=== PATIENT | female | born 1985 | race Caucasian/White ===

== ENCOUNTER 2016-11-04 16:19 | Emergency (ER) | payer OTHER ==
[~2016-11-04] VITALS: Ht 160 cm; Wt 86.4 kg
[~2016-11-04 16:19] MED LIST: HYDR-4003 PO; SYN75 PO; VALA100026 PO; VENL75TA3 PO
[2016-11-04 16:33] VITALS: BP 137/100; PULSE 108; RESP 20; O2SAT 99
--- NOTE | 2016-11-04 18:04 | ED.REPORT ---
HPI-Dental/Mouth Prob Date of Service November 04, 2016 ED Provider: Tonya Rogers History of Present Illness: dentist feels she has an infection. tooth removed on Monday am, returned on Monday confirmed dry socket, given vicodin saw different dentist, packed some help. but packing comes out. Started on PEN vk today. . nausea because of the pain1010 Nursing Notes Stated Complaint: DRY SOCKET Chief Complaint: Dental Allergies: Coded Allergies: No Known Allergies (Unverified , 04/21/16) Scheduled Levothyroxine (Synthroid) 75 Mcg Tablet 75 MCG PO DAILY Valacyclovir (Valacyclovir) 1,000 Mg Tablet 1,000 MG PO DAILY Venlafaxine (Venlafaxine) 75 Mg Tablet 37 MG PO BIDWM Scheduled PRN Hydrocodone-Acetaminophen 5-325 mg (Hydrocodone-Acetaminophen 5-325 mg) 1 Each Tablet 1 TABLET PO Q4H PRN PRN For Pain General Time Seen by MD: 18:03 Chief Complaint Tooth pain Hx Obtained From: Patient Onset Occurred: 6 days ago Symptom Duration: Since onset Severity: Current: Pain level 10 out of 10 Past Medical History Past Medical History Notes: PCP: Dr. Perry Past Medical History Frequent ear and sinus infections as a youth 2013 hypothyroid Reports: Thyroid disease Past Surgical History Adenoidectomy Uvula removed Ear tubes Reports: Tonsillectomy Family History Mother has breast cancer Father has crohn's disease Smoking History Never Smoker Social History Alcohol Use: "Social" Drug Use: Denies drug use Other Social History: Good social support, Local resident Occupation lives by self, works as a [employer] 11/04/2016 Ambulatory Status Independent Review of Systems Basic Review of Systems Eyes: Vision NL, No discharge Skin: No bruising, No rash, No itch Psychiatric: Normal thought content Physical Exam Physical Exam Notes: Vital signs have improved on discharge after pain control Initial Vital Signs Vital Signs (First) Date Time Temp Pulse Resp B/P Pulse Ox O2 Delivery O2 Flow Rate FiO2 11/04/16 16:33 36.4 108 20 137/100 99 Room Air Initial VS: Reviewed, Vital signs abnormal General/Constitutional: Well-developed, Well-nourished Head / Eyes: Atraumatic, Normocephalic, PERRL Respiratory: Breath sounds normal, Clear to auscultation, No respiratory distress Cardiovascular: Regular rate & rhythm, Heart sounds normal, Intact distal pulses Abdomen / GI: Soft, Non-tender, No guarding, No rebound, No distention Back: No CVA tenderness Lymphatic: No lymphadenopathy Extremities: Vascular intact, Neuro intact, No swelling, No tenderness Skin: Warm, Dry, No cyanosis Neurologic: Alert, Oriented, Nonfocal Psychiatric: Mood/affect normal, Behavior normal, Normal thought content patient with extensive gum swellling, including the right check and into the right side of the neck General/Constitutional: Awake, Alert, No acute distress, Well appearing, Well developed, Well hydrated Respiratory / Chest: Atraumatic, Breath sounds NL, Breath sounds = bilat, No respiratory distress Cardiovascular: Heart rate NL, Regular rhythm, Heart sounds NL, No gallop Interpretation & Diagnostics Interpretation & Diagnostics: PROCEDURE: CT NECK SOFT TISSUES WITH CONTRAST ([id number]) INDICATIONS: ? abscess formation TECHNIQUE: After the administration of intravenous contrast, 3.0 mm axial sections acquired from the sella to the aortic arch. Additional oblique axial 3.0 mm sections acquired through the pharynx. 3 mm thick coronal reformats were generated. For radiation dose reduction, the following was used: automated exposure control. COMPARISON: [facility], CT, CT NECK SOFT TISSUE W CON, 04/21/2016, 2:26. FINDINGS: Image quality: Excellent. Lymph nodes: No enlarged lymph nodes seen throughout the neck. Vessels: Visualized vasculature appears patent. Neck spaces: The oropharynx, nasopharynx, and pharynx demonstrate no mucosal lesions. The vocal cords, false vocal cords, pyriform sinuses, epiglottis, vallecula, and tongue base all appear normal. Extramucosal spaces appear unremarkable. Glands: The parotid and submandibular glands appear normal. Thyroid gland is within normal limits. Miscellaneous: Visualized brain and orbits appear normal. Lung apices appear clear. Superficial soft tissues appear normal. Bones: No suspicious bony lesions. Resection cavity within the right posterior mandible is present, compatible with wisdom tooth extraction. Visualized sinuses and mastoids appear unremarkable. IMPRESSION: 1. Postsurgical sequelae following right-sided wisdom tooth extraction. 2. Otherwise negative examination of the neck. Dictated by: Shelby Bradley M.D. on 11/04/2016 at 20:05 Approved by: Shelby Bradley M.D. on 11/04/2016 at 20:08 Lab Results Interpretation Result Diagram: 11/04/16 1849 11/04/16 1849 Test 11/04/16 18:49 White Blood Count 8.0th/mm3 (3.8-10.1) Red Blood Count 4.02mil/mm3 (3.90-5.20) Hemoglobin 12.4g/dL (12.0-15.6) Hematocrit 36.4% (35.0-46.0) Mean Corpuscular Volume 90.5fL (81-100) Mean Corpuscular Hemoglobin 30.8pg (27.0-35.0) Mean Corpuscular Hemoglobin Concent 34.1% (32.0-37.0) Red Cell Distribution Width 12.4% (12.3-15.4) Platelet Count 220bil/L (150-400) Neutrophils (%) (Auto) 61.7% (40-74) Lymphocytes (%) (Auto) 29.0% (14-46) Monocytes (%) (Auto) 7.1% (4-12) Eosinophils (%) (Auto) 1.3% (0-5) Basophils (%) (Auto) 0.8% (0-3) Sodium Level 138mEq/L (134-144) Potassium Level 3.9mEq/L (3.5-5.2) Chloride Level 103mEq/L (97-108) Carbon Dioxide Level 24mmol/L (18-29) Blood Urea Nitrogen 15mg/dL (6-20) Creatinine 0.62mg/dL (0.57-1.00) Estimat Glomerular Filtration Rate 160mL/min (>59) Glucose Level 94mg/dL (60-99) Calcium Level 9.0mg/dL (8.5-10.1) Total Bilirubin 0.2mg/dL (0.0-1.2) Aspartate Amino Transf (AST/SGOT) 16U/L (0-50) Alanine Aminotransferase (ALT/SGPT) 15U/L (0-32) Alkaline Phosphatase 45U/L (25-150) Total Protein 7.2g/dL (6.4-8.4) Albumin 4.1g/dL (3.4-5.0) Hold Shi Top Tube Received (Received) Re-Eval/Medical Decision Med Decision/Clinical Course 31 year old female presents for evualation for pain that has continued to increase after wisdom tooth extraction. Labs are normal. CT does not show sign of cellulits or abscess formation. Patient with improvement after meds and IV pain meds. Discharge & Departure Primary Impression: Toothache Disposition: Home Additional Instructions: Oral exam shows a large amount of gum swelling. The right cheek is also showing some swelling. Your labs are normal. The CT is normal, no sign of a deep pocket of infection. There is so much gum swelling, I am not seeing an obvious dry socket. You received a dose of clindamycin in the ER, along with decadron 20 mg and toradol and dilaulid. To prevent constipation, start benefiber 2 to 3 times a day. You can either use donta lax or mag citrate to help start the process. Please continue with clindamycin 300 mg 4 times a day for 7 days. Repeat the dose of decadron tomorrow morning. Use ketorolac 10 mg up to 4 times a day starting on Monday. Continue with hydrocodone 10/325 1 up to 2 times a day as needed. You can always cut the medication in half if this is too strong. Return with any concerns. Please see your dentist on Monday or Monday. Referrals: Kem Perry MD (PCP) EDSupervising Provider for APC: Mike Arana MD copies to: Kem Perry MD, Sue ARNP November 04, 2016 18:04
[2016-11-04] MEDS ORDERED: Clindamycin Inj 900 MG in IV Premix 1 EACH IV ONE (18:15)
[2016-11-04] MEDS ORDERED: Dexamethasone Inj 20 MG in 0.9% Sodium Chloride-Pha MIX 50 ML IV ONE (18:15)
[2016-11-04 19:09] LABS: BASOPHILS % (AUTO) 0.8 % (0-3); EOSINOPHILS % (AUTO) 1.3 % (0-5); MONOCYTES % (AUTO) 7.1 % (4-12); Mean Corpuscular Hemoglobin 30.8 pg (27.0-35.0); Mean Corpuscular Volume 90.5 fL (81-100); NEUTROPHILS % (AUTO) 61.7 % (40-74); Platelet Count 220 bil/L (150-400)
[2016-11-04] MEDS ORDERED: HYDROmorphone 0.5 mg/0.5 mL iSecure Syringe IVPUSH ONE (19:20)
--- NOTE | 2016-11-04 20:09 | DRSVH ---
PROCEDURE: CT NECK SOFT TISSUES WITH CONTRAST ([id number]) INDICATIONS: ? abscess formation TECHNIQUE: After the administration of intravenous contrast, 3.0 mm axial sections acquired from the sella to th e aortic arch. Additional oblique axial 3.0 mm sections acquired through the pharynx. 3 mm thick co colton reformats were generated. For radiation dose reduction, the following was used: automated exp osure control. COMPARISON: [facility], CT, CT NECK SOFT TISSUE W CON, 04/21/2016, 2:26. FINDINGS: Image quality: Excellent. Lymph nodes: No enlarged lymph nodes seen throughout the neck. Vessels: Visualized vasculature appears patent. Neck spaces: The oropharynx, nasopharynx, and pharynx demonstrate no mucosal lesions. The vocal cor ds, false vocal cords, pyriform sinuses, epiglottis, vallecula, and tongue base all appear normal. E xtramucosal spaces appear unremarkable. Glands: The parotid and submandibular glands appear normal. Thyroid gland is within normal limits. Miscellaneous: Visualized brain and orbits appear normal. Lung apices appear clear. Superficial so ft tissues appear normal. Bones: No suspicious bony lesions. Resection cavity within the right posterior mandible is present, compatible with wisdom tooth extraction. Visualized sinuses and mastoids appear unremarkable. IMPRESSION: 1. Postsurgical sequelae following right-sided wisdom tooth extraction. 2. Otherwise negative examination of the neck. Dictated by: Shelby Bradley M.D. on 11/04/2016 at 20:05 Approved by: Shelby Bradley M.D. on 11/04/2016 at 20:08
[2016-11-04 20:11] VITALS: BP 139/99; PULSE 63; RESP 14; O2SAT 99
== END 2016-11-04 20:46 | disposition home or self-care (01) ==
LOC: SED 16:19
DX: K08.89 Other specified disorders of teeth and supporting structures (principal); E03.9 Hypothyroidism, unspecified; Z98.818 Other dental procedure status
CPT/HCPCS: 36415; 70491; 80053; 81025; 85025; 96365; 96375; 99285; J1100; J1170; J1885; Q9967